=== PATIENT | female | born 2000 | race Caucasian/White ===

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

== ENCOUNTER → 2023-02-13 | Outpatient (REF) | payer BC ==
[~2023-02-13] MED LIST: AMOX500C PO; HYDR-3715 PO; ZOFR4TAB14 PO
== END ==
LOC: M WUC 17:30
PROVIDERS: ATTEND Student in an Organized Health Care Education/Training Program
DX: R30.0 Dysuria (principal)